=== PATIENT | female | born 1935 | race Caucasian/White ===

== ENCOUNTER 2023-05-12 14:55 | Emergency (ER) | payer OTHER, SELFPAY ==
[2023-05-12 15:04] VITALS: PULSE 60; RESP 18; TEMP 36.5; O2SAT 100; BMI 30.2
[2023-05-12 15:08] VITALS: BP 170/60
--- NOTE | 2023-05-12 15:21 | ED_ITS ---
HPI - Fall General Chief Complaint: Fall Stated Complaint: FALL/L SIDE PAIN Time Seen by Provider: 05/12/23 15:21 Source: patient and family Source comment: patient Mode of arrival: Wheelchair Limitations: no limitations History of Present Illness HPI Narrative: Patient presents to emergency department complaining of left rib pain. Patient states last night she fell and she got out of bed she tripped over a laundry hamper, and hit her chest with contrast or. She did not hit her head or have loss of consciousness. She went to her sister's that was today and has been taking Tylenol morning for the pain. She denies any shortness of breath.Patient takes liquids. She denies any hematuria, dysuria. She denies any nausea, vomiting, diarrhea, constipation. She denies any other injury. Related Data Home Medications Medication Instructions Recorded Confirmed apixaban 2.5 mg tablet (Eliquis) 2.5 mg PO BID 05/12/23 05/12/23 atorvastatin 40 mg tablet 40 mg PO DAILY 05/12/23 05/12/23 famotidine 20 mg tablet 20 mg PO DAILY 05/12/23 05/12/23 furosemide 20 mg tablet 20 mg PO DAILY 05/12/23 05/12/23 irbesartan 300 mg tablet 300 mg PO DAILY 05/12/23 05/12/23 levothyroxine 50 mcg tablet 50 mcg PO DAILY 05/12/23 05/12/23 lorazepam 0.5 mg tablet 0.5 mg PO DAILY 05/12/23 05/12/23 metoprolol succinate 25 mg 25 mg PO DAILY 05/12/23 05/12/23 tablet,extended release 24 hr metoprolol succinate 50 mg 50 mg PO DAILY 05/12/23 05/12/23 tablet,extended release 24 hr paroxetine HCl 20 mg tablet 20 mg PO DAILY 05/12/23 05/12/23 Previous Rx's Medication Instructions Recorded hydrocodone 5 mg-acetaminophen 325 1 tab PO Q6H PRN pain 5 days #14 05/12/23 mg tablet tabs Allergies Allergy/AdvReac Type Severity Reaction Status Date / Time cephalexin [From Keflex] Allergy Intermediate Verified 05/12/23 15:08 Review of Systems ROS Status of ROS 10 or more systems reviewed and unremarkable except as noted in history and below [facility] Medical History (Updated 05/12/23 @ 17:38 by Keiko Patrick MD) Social History Smoking status: Former smoker Exam Narrative Exam Narrative: Nurses notes and vital signs reviewed and patient is not hypoxic. General: Nontoxic, Elderly, frail, chronically ill, and in no apparent distress. Skin: Warm, dry, no pallor noted. No Rash Head: Normocephalic, atraumatic. Neck: Supple, non-tender. Eye: Pupils are equal, round and EOMI. No scleral icterus. Ears, Nose, Mouth, and Throat: TM clear, no posterior oropharynx erythema or nasal mucosal hypertrophy, uvula is mid-line Oral mucosa is moist Cardiovascular: Regular Rate and Rhythm without murmur, gallop or rub. Respiratory: No accessory muscle use or respiratory distress. Lungs are clear to auscultation, no wheezing, rales or rhonchi Chest Wall: Moderate tenderness to left anterior lateral ribs 7 and 8, no Crepitance, no step-offs. Back: No midline thoracic or lumbar vertebral tenderness. No CVA tenderness Musculoskeletal: normal ROM, no calf or popliteal tenderness, no lower extremity edema/swelling GI: Abdomen is soft, non-distended. Normal bowel sounds. No tenderness to palpation. No rebound, guarding, or rigidity noted. Neurological: A&O x4. No cranial nerve dysfunction observed. No truncal ataxia. Moves all extremities. Psychiatric: Cooperative and interactive. Normal mood and affect. Constitutional Vital Signs, click to edit/add: Last Vital Signs Temp 97.7 F 05/12/23 15:04 Pulse 60 05/12/23 15:04 Resp 18 05/12/23 15:04 BP 170/60 H 05/12/23 15:08 Pulse Ox 100 05/12/23 15:04 O2 Del Method Room Air 05/12/23 15:04 Course Vital Signs Vital signs: Vital Signs Temperature 97.7 F 05/12/23 15:04 Pulse Rate 60 05/12/23 15:04 Respiratory Rate 18 05/12/23 15:04 Pulse Oximetry 100 05/12/23 15:04 Oxygen Delivery Method Room Air 05/12/23 15:04 Temperature 97.7 F 05/12/23 15:04 Pulse Rate 60 05/12/23 15:04 Respiratory Rate 18 05/12/23 15:04 Blood Pressure 170/60 H 05/12/23 15:08 Pulse Oximetry 100 05/12/23 15:04 Oxygen Delivery Method Room Air 05/12/23 15:04 MDM - Fall MDM Narrative Medical decision making narrative: Chest x-ray was done and is unremarkable. Patient continues to have pain she was given 4 mg of morphine IM. AP abdomen and pelvis was ordered since the patient is an eliquis. VT scan does not show any intra-abdominal or retroperitoneal bleed. Family and patient is instructed to have the patient to [facility] spirometry. Given a prescription for short course of [place] which the patient states she has tolerated well in the past. She is at increased risk of nausea, constipation, and falls. Patient lives with spouse. They state they're familiar with the medication. At this time the patient is without objective evidence of an acute process requiring hospitalization or inpatient management. The patient has remained hemodynamically stable. No additional indication for emergent studies at this time. I answered all questions. Discussed discharge instructions including standard anticipatory guidance and what should prompt a return to the emergency department, including if they get worse are not getting better or develops any new or concerning symptoms. I've given them specific time frame in which to follow-up, and who to follow-up with. The patient demonstrates understanding. Patient is nontoxic and stable for discharge with outpatient follow-up. This note was created with the assistance of a speech recognition program. Although the intention is to generate documents that actually reflects the cedrick nt of the visit, no guarantees can be provided that every mistake has been identified and corrected by editing. Lab Data Attestation: I reviewed the patient's lab results. Labs: Lab Results 05/12/23 Range/Units 15:25 WBC 9.1 (4.0-11.0) 10^3/uL RBC 3.51 L (4.20-5.40) 10^6/uL Hgb 11.5 L (12.0-16.0) g/dL Hct 33.1 L (36.0-48.0) % MCV 94.3 (81.0-99.0) fL MCH 32.8 (26.7-34.0) pg MCHC 34.7 (29.9-35.2) g/dL RDW 12.9 (11.0-15.0) % Plt Count 146 L (150-450) 10^3/uL MPV 8.0 L (9.5-13.5) fL Neut % (Auto) 65.2 (43.0-75.0) % Lymph % (Auto) 20.0 L (20.5-60.0) % [place] % (Auto) 12.6 H (1.7-12.0) % Eos % (Auto) 1.5 (0.9-7.0) % Baso % (Auto) 0.3 (0.2-2.0) % Neut # (Auto) 6.0 (1.4-6.5) 10^3/uL Lymph # (Auto) 1.8 (1.2-3.8) 10^3/uL [place] # (Auto) 1.2 H (0.3-0.8) 10^3/uL Eos # (Auto) 0.1 (0.0-0.7) 10^3/uL Baso # (Auto) 0.0 (0.0-0.1) 10^3/uL Abs Immat Gran (auto) 0.04 H (0.00-0.03) 10^3/uL Imm/Tot Granulo (auto) 0.4 (0.0-0.5) % Sodium 130 L (136-145) mmol/L Potassium 4.1 (3.5-5.1) mmol/L Chloride 95 L (98-107) mmol/L Carbon Dioxide 29.8 (21.0-32.0) mmol/L Anion Gap 9.3 BUN 34.0 H (7.0-18.0) mg/dL Creatinine 1.76 H (0.55-1.02) mg/dL Est GFR ( Amer) 33 L (>=60) Est GFR (Non-Af Amer) 27 L (>=60) BUN/Creatinine Ratio 19.3 Glucose 121 H (74-106) mg/dL Calcium 8.7 (8.5-10.1) mg/dL Total Bilirubin 0.5 (0.2-1.0) mg/dL AST 21 (15-37) U/L ALT 23 (14-59) U/L Alkaline Phosphatase 56 (46-116) U/L Total Protein 7.0 (6.4-8.2) g/dL Albumin 3.7 (3.4-5.0) g/dL Globulin 3.3 g/dL Albumin/Globulin Ratio 1.1 Discharge Plan Discharge Chief Complaint: Fall Clinical Impression: Contusion of rib on left side Patient Disposition: Home, Self-Care Time of Disposition Decision: 17:35 Condition: Good Mode of Transportation: Private Vehicle Prescriptions / Home Meds: New hydrocodone-acetaminophen 5-325 mg tablet 1 tab PO Q6H PRN (Reason: pain) 5 Days Qty: 14 0RF No Action Eliquis 2.5 mg tablet 2.5 mg PO BID atorvastatin 40 mg tablet 40 mg PO DAILY famotidine 20 mg tablet 20 mg PO DAILY furosemide 20 mg tablet 20 mg PO DAILY irbesartan 300 mg tablet 300 mg PO DAILY levothyroxine 50 mcg tablet 50 mcg PO DAILY lorazepam 0.5 mg tablet 0.5 mg PO DAILY metoprolol succinate 25 mg tablet extended release 24 hr 25 mg PO DAILY metoprolol succinate 50 mg tablet extended release 24 hr 50 mg PO DAILY paroxetine HCl 20 mg tablet 20 mg PO DAILY Instructions: Rib Contusion (ED) Stand Alone Forms: Portal Instructions Referrals: Isis Burk MD [Primary Care Provider] - 1 week
--- NOTE | 2023-05-12 15:36 | XR_ITS ---
The [address] [address] Patient Name: FILIBERTO JEWELL MRN: [id number] date: 1935 Sex: F Assigned Patient Location: ER Current Patient Location: ER Accession/Order Number: [id number] Exam Date: 05/12/2023 16:10 Report Date: 05/12/2023 17:20 At the request of: OSEAS JUAREZ Procedure: XR ribs LT min 3V w CXR1V EXAM: XR ribs LT min 3V w CXR1V HISTORY: pain, fall COMPARISON: None. TECHNIQUE: 2 view study FINDINGS: Left ribs show normal architecture. Wire sternal sutures are noted. XR/XR ribs LT min 3V w CXR1V IMPRESSION: No acute left rib fracture is identified on this 2 view study. Electronically authenticated by: Maryanne HUYNH Date: 05/12/2023 17:20
--- NOTE | 2023-05-12 15:36 | CT_ITS ---
[address] [address] Patient Name: FILIBERTO JEWELL MRN: [id number] date: 1935 Sex: F Assigned Patient Location: ER Current Patient Location: ER Accession/Order Number: [id number] Exam Date: 05/12/2023 16:10 Report Date: 05/12/2023 17:08 At the request of: OSEAS JUAREZ Procedure: CT abdomen pelvis wo con EXAM: CT abdomen pelvis wo con HISTORY: pain, fall COMPARISON: 02/25/2020. TECHNIQUE: Axial CT imaging was performed through the abdomen and pelvis without intravenous contrast. Multiplanar reformats were performed. Dose reduction techniques were achieved by using automated exposure control and/or adjustment of mA and/or kV according to patient size and/or use of iterative reconstruction technique. FINDINGS: Noncontrast examination has limited sensitivity for detection of traumatic injuries. Lung bases: Mild, dependent opacities at the lung bases have appearance most suggestive of atelectasis. Presumed CABG. GI upper: Unremarkable. Liver: Normal size and contour. Gallbladder: Cholecystectomy. Biliary system: No intra or extrahepatic biliary ductal dilatation. Spleen: Calcifications of the spleen are likely related to chronic granulomatous disease. Normal size. Pancreas: Unremarkable. Adrenal glands: Normal adrenal glands. Kidneys/ureters: Lobulated contours. No hydronephrosis or ureterolithiasis. No nephrolithiasis. Vessels: No aneurysmal dilatation of the aorta. Significant atherosclerotic disease is noted. Ectasia of the infrarenal aorta is similar prior examination, measuring up to 2.4 cm on today's examination, previously 2.3 cm. Lymph Nodes: No lymphadenopathy. Small bowel: No wall thickening or dilatation. Colon: No dilatation. Colonic diverticulosis. Appendix: Not identified; no evidence of inflammatory change of the right lower quadrant. Peritoneal cavity: No free fluid or peritoneum. Lower : Bladder is decompressed with mildly prominent wall. Bones: Degenerative findings without acute bony abnormality. Stable grade 1 spondylolisthesis at L4-L5. Grade 1 retrolisthesis at L1-L2 and L2-L3 is also unchanged. Baastrup's disease is noted. Findings are suggestive of decreased bone density. Left hip arthroplasty. Soft tissues: No acute finding. Additional findings: None. CT/CT abdomen pelvis wo con IMPRESSION: Noncontrast examination has limited sensitivity for detection of traumatic injuries. 1. No evidence of acute intra-abdominal abnormality. No evidence of fracture. 2. Bladder wall prominence is likely accentuated by underdistention. Please exclude cystitis on clinical grounds. 3. Additional findings as above. Electronically authenticated by: ARNULFO OLGUIN Date: 05/12/2023 17:08
[2023-05-12 16:35] LABS: Basophils Percent Auto 0.3 % (0.2-2.0); Eosinophils Absolute Auto 0.1 10^3/uL (0.0-0.7); Eosinophils Percent Auto 1.5 % (0.9-7.0); Hematocrit 33.1 % (36.0-48.0); Hemoglobin 11.5 g/dL (12.0-16.0); Immature Granulocytes Abs Auto 0.04 10^3/uL (0.00-0.03); Immature Granulocytes Pct Auto 0.4 % (0.0-0.5); Lymphocytes Absolute Auto 1.8 10^3/uL (1.2-3.8); Mean Corpuscular HGB Conc 34.7 g/dL (29.9-35.2); Mean Corpuscular Hemoglobin 32.8 pg (26.7-34.0); Mean Corpuscular Volume 94.3 fL (81.0-99.0); Monocytes Absolute Auto 1.2 10^3/uL (0.3-0.8); Monocytes Percent Auto 12.6 % (1.7-12.0); Neutrophils Percent Auto 65.2 % (43.0-75.0); Platelet Count 146 10^3/uL (150-450); Red Blood Count 3.51 10^6/uL (4.20-5.40); Red Cell Distribution Width 12.9 % (11.0-15.0); White Blood Count 9.1 10^3/uL (4.0-11.0)
[2023-05-12] MEDS: MORPHINE SULFATE 4 MG/ML VIAL IV (16:36)
[2023-05-12 16:48] LABS: Alanine Aminotransferase 23 U/L (14-59); Albumin Globulin Ratio 1.1; Albumin Level 3.7 g/dL (3.4-5.0); Alkaline Phosphatase 56 U/L (46-116); Anion Gap 9.3; Aspartate Amino Transferase 21 U/L (15-37); BUN Creatinine Ratio 19.3; Bilirubin Total 0.5 mg/dL (0.2-1.0); Calcium 8.7 mg/dL (8.5-10.1); Carbon Dioxide 29.8 mmol/L (21.0-32.0); Chloride 95 mmol/L (98-107); Estimated GFR (African America 33 (>=60); Estimated GFR (Non-African Ame 27 (>=60); Globulin 3.3 g/dL; Glucose 121 mg/dL (74-106); Potassium 4.1 mmol/L (3.5-5.1); Sodium 130 mmol/L (136-145)
== END 2023-05-12 17:59 | disposition home or self-care (01) ==
PROVIDERS: Emergency Provider Emergency Medicine; PCP Family Medicine
DX: S20.212A Contusion of left front wall of thorax, initial encounter (principal); W18.09XA Striking against other object with subsequent fall, initial encounter; Z79.01 Long term (current) use of anticoagulants; Z79.899 Other long term (current) drug therapy; Z79.890 Hormone replacement therapy; Z87.891 Personal history of nicotine dependence
CPT/HCPCS: 36415; 71101; 74176; 80053; 85025; 94667; 96374; 99285

== ENCOUNTER 2023-06-07 13:10 | Outpatient (OUT) | payer OTHER, SELFPAY ==
[2023-06-07 14:20] LABS: Alanine Aminotransferase 36 U/L (14-59); Albumin Globulin Ratio 0.7; Albumin Level 2.9 g/dL (3.4-5.0); Alkaline Phosphatase 81 U/L (46-116); Anion Gap 11.4; Aspartate Amino Transferase 26 U/L (15-37); Bilirubin Total 0.5 mg/dL (0.2-1.0); Calcium 8.2 mg/dL (8.5-10.1); Carbon Dioxide 25.5 mmol/L (21.0-32.0); Chloride 96 mmol/L (98-107); Estimated GFR (African America 46 (>=60); Estimated GFR (Non-African Ame 38 (>=60); Globulin 3.9 g/dL; Glucose 88 mg/dL (74-106); Potassium 4.9 mmol/L (3.5-5.1); Sodium 128 mmol/L (136-145); Total Protein 6.8 g/dL (6.4-8.2)
[2023-06-07 14:25] LABS: Basophils Percent Auto 0.3 % (0.2-2.0); Eosinophils Absolute Auto 0.2 10^3/uL (0.0-0.7); Eosinophils Percent Auto 1.4 % (0.9-7.0); Hematocrit 29.3 % (36.0-48.0); Hemoglobin 9.7 g/dL (12.0-16.0); Immature Granulocytes Abs Auto 0.09 10^3/uL (0.00-0.03); Immature Granulocytes Pct Auto 0.7 % (0.0-0.5); Lymphocytes Absolute Auto 1.7 10^3/uL (1.2-3.8); Lymphocytes Percent Auto 12.5 % (20.5-60.0); Mean Corpuscular HGB Conc 33.1 g/dL (29.9-35.2); Mean Corpuscular Hemoglobin 32.6 pg (26.7-34.0); Mean Corpuscular Volume 98.3 fL (81.0-99.0); Monocytes Absolute Auto 1.4 10^3/uL (0.3-0.8); Monocytes Percent Auto 10.9 % (1.7-12.0); Neutrophils Absolute Auto 9.8 10^3/uL (1.4-6.5); Neutrophils Percent Auto 74.2 % (43.0-75.0); Platelet Count 224 10^3/uL (150-450); Red Blood Count 2.98 10^6/uL (4.20-5.40); Red Cell Distribution Width 13.2 % (11.0-15.0); White Blood Count 13.2 10^3/uL (4.0-11.0)
[2023-06-07 14:51] LABS: Bilirubin Urine NEGATIVE (NEGATIVE); Blood Urine NEGATIVE (NEGATIVE); Clarity Urine CLEAR (CLEAR); Color Urine YELLOW (YELLOW); Glucose Urine UA NEGATIVE (NEGATIVE); Ketones Urine NEGATIVE (NEGATIVE); Leukocyte Esterase Urine NEGATIVE (NEGATIVE); Nitrite Urine NEGATIVE (NEGATIVE); Protein Urine NEGATIVE (NEG/TRACE); Specific Gravity Urine <=1.005 (1.005-1.025); Urobilinogen Urine 0.2 EU/dL (0.2-1.0); pH Urine 6.5 (5.0-9.0)
[2023-06-07 15:43] LABS: Free T4 1.13 ng/dL (0.76-1.46)
== END 2023-06-07 13:11 | disposition home or self-care (01) ==
LOC: LAB 13:11
PROVIDERS: PCP Family Medicine; Visit Provider Family Medicine
DX: I12.9 Hypertensive chronic kidney disease with stage 1 through stage 4 chronic kidney disease, or unspecified chronic kidney disease (principal); N18.30 Chronic kidney disease, stage 3 unspecified; E03.8 Other specified hypothyroidism; F32.A Depression, unspecified; R82.998 Other abnormal findings in urine
CPT/HCPCS: 36415; 80053; 81003; 84439; 84443; 85025; 87086

== ENCOUNTER 2023-06-28 15:45 | Outpatient (OUT) | payer OTHER, SELFPAY ==
[2023-07-04 11:10] LABS: Methylmalonic Acid, Serum 336 nmol/L (0-378)
== END 2023-06-28 15:46 | disposition home or self-care (01) ==
LOC: LAB 15:45
PROVIDERS: PCP Family Medicine; Visit Provider Psychiatry & Neurology Neurology
DX: G30.1 Alzheimer's disease with late onset (principal)
CPT/HCPCS: 36415; 82607; 83921

== ENCOUNTER 2023-07-11 10:24 | Outpatient (OUT) | payer OTHER, SELFPAY ==
[2023-07-11 10:28] LABS: Estimated GFR (African America 26 (>=60); Estimated GFR (Non-African Ame 21 (>=60)
== END 2023-07-11 10:25 | disposition home or self-care (01) ==
LOC: LAB 10:24
PROVIDERS: PCP Family Medicine; Visit Provider Psychiatry & Neurology Neurology
DX: G30.1 Alzheimer's disease with late onset (principal)
CPT/HCPCS: 36415; 82565; 84520

== ENCOUNTER 2023-07-13 09:11 | Outpatient (OUT) | payer OTHER, SELFPAY ==
--- NOTE | 2023-07-13 09:19 | MR_ITS ---
The [address] [address] Patient Name: FILIBERTO JEWELL MRN: [facility]:[id number] date: 1935 Sex: F Assigned Patient Location: MRI Current Patient Location: MRI Accession/Order Number: [id number] Exam Date: 07/13/2023 09:45 Report Date: 07/13/2023 15:12 At the request of: MARTY ALLEN Procedure: MR head/brain wo con EXAM: MR head/brain wo con HISTORY: Alzheimer's Disease G30.9 COMPARISON: CT brain 03/17/2017 TECHNIQUE: MRI of the brain was performed without contrast. FINDINGS:. There is no restricted diffusion to suggest acute infarct. There is no midline shift, mass effect, or abnormal extraaxial fluid collections. Moderate enlargement of the ventricles and sulci, consistent with age appropriate cerebral atrophy. There is an area of encephalomalacia at the right occipital lobe with ex vacuo dilatation of occipital horn and atrium of the right lateral ventricle, stable since 2017, suggestive of chronic right [employer] territory infarct. There are remote lacunar infarcts in bilateral cerebellar hemisphere. Multiple scattered foci of T2/FLAIR signal abnormality are identified in the subcortical, periventricular white matter and jazzmine, likely reflect chronic microvascular ischemic changes. The major intracranial flow voids are visualized. The cerebellar tonsils are normal in position. The orbits are unremarkable. The paranasal sinuses demonstrate no air-fluid level. The mastoid air cells are clear. MR/MR head/brain wo con IMPRESSION: No acute intracranial abnormality. 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 Chronic microvascular ischemia and involutional changes. Electronically authenticated by: MARLO RUSSELL Date: 07/13/2023 15:12
== END 2023-07-13 09:12 | disposition home or self-care (01) ==
LOC: MRI 09:11
PROVIDERS: PCP Family Medicine; Visit Provider Psychiatry & Neurology Neurology
DX: G30.9 Alzheimer's disease, unspecified (principal)
CPT/HCPCS: 70551

== ENCOUNTER 2023-07-26 09:23 | Outpatient (OUT) | payer OTHER, SELFPAY ==
[2023-07-26 10:02] LABS: Creatinine Urine Random 107.84 mg/dL (20.00-300.00); Protein Creatinine Ratio Urine 0.21; Total Protein Urine Random 22.2 mg/dL (<=11.9)
[2023-07-26 10:24] LABS: Hematocrit 33.5 % (36.0-48.0); Hemoglobin 11.3 g/dL (12.0-16.0); Mean Corpuscular HGB Conc 33.7 g/dL (29.9-35.2); Mean Corpuscular Hemoglobin 32.7 pg (26.7-34.0); Mean Corpuscular Volume 96.8 fL (81.0-99.0); Mean Platelet Volume 8.7 fL (9.5-13.5); Platelet Count 172 10^3/uL (150-450); Red Blood Count 3.46 10^6/uL (4.20-5.40); Red Cell Distribution Width 13.6 % (11.0-15.0); White Blood Count 6.7 10^3/uL (4.0-11.0)
[2023-07-26 10:26] LABS: Albumin Level 3.7 g/dL (3.4-5.0); Anion Gap 11.9; Calcium 8.8 mg/dL (8.5-10.1); Carbon Dioxide 27.6 mmol/L (21.0-32.0); Chloride 98 mmol/L (98-107); Estimated GFR (African America 31 (>=60); Estimated GFR (Non-African Ame 26 (>=60); Glucose 76 mg/dL (74-106); Magnesium 1.9 mg/dL (1.8-2.4); Potassium 3.5 mmol/L (3.5-5.1); Sodium 134 mmol/L (136-145); Uric Acid 9.4 mg/dL (2.6-6.0)
[2023-07-26 10:30] LABS: Percent Iron Saturation 39.9 %
[2023-07-27 13:08] LABS: PTH, Intact 61 pg/mL (15-65)
== END 2023-07-26 09:24 | disposition home or self-care (01) ==
PROVIDERS: PCP Family Medicine; Visit Provider Internal Medicine
DX: I12.9 Hypertensive chronic kidney disease with stage 1 through stage 4 chronic kidney disease, or unspecified chronic kidney disease (principal); N18.30 Chronic kidney disease, stage 3 unspecified; I50.22 Chronic systolic (congestive) heart failure; N25.81 Secondary hyperparathyroidism of renal origin; E83.42 Hypomagnesemia; D63.1 Anemia in chronic kidney disease
CPT/HCPCS: 36415; 80069; 82306; 82570; 82607; 82728; 82746; 83540; 83550; 83735; 83970; 84156; 84550; 85027